=== PATIENT | male | born 1960 | race Caucasian/White ===

== ENCOUNTER 2020-12-18 01:06 | Emergency (ER) | payer BC ==
[~2020-12-18] VITALS: Ht 180.3 cm; Wt 87.3 kg
[2020-12-18 02:00] LABS: BASOPHILS % (AUTO) 0.6 % (0-1); EOSINOPHILS # (AUTO) 0.3 X10'3 (0-0.9); EOSINOPHILS % (AUTO) 4.3 % (0-6); HEMATOCRIT 38.3 % (42.0-52.0); HEMOGLOBIN 13.1 g/dl (14.0-17.9); LYMPHOCYTES # (AUTO) 2.7 X10'3 (1.1-4.8); LYMPHOCYTES % (AUTO) 36.4 % (21-51); MEAN CORPUSCULAR HEMOGLOBIN 30.5 PG (27.0-31.0); MEAN CORPUSCULAR HGB CONC 34.1 g/dL (33.0-36.5); MEAN CORPUSCULAR VOLUME 89.5 FL (78-98); MEAN PLATELET VOLUME 7.3 FL (7.4-10.4); MONOCYTES # (AUTO) 0.8 X10'3 (0-0.9); MONOCYTES % (AUTO) 10.1 % (2-12); NEUTROPHILS # (AUTO) 3.6 X10'3 (1.8-7.7); NEUTROPHILS % (AUTO) 48.6 % (42-75); PLATELET COUNT 281 X10'3 (140-440); RED BLOOD COUNT 4.28 X10'6 (4.70-6.10); RED CELL DISTRIBUTION WIDTH 12.6 % (11.5-14.5); WHITE BLOOD COUNT 7.4 X10'3 (4.5-11.0)
[2020-12-18] MEDS ORDERED: ketorolac tromethamine 15mg/ml inj. IV ONE (02:05)
[2020-12-18] MEDS ORDERED: iohexol 300mg/ml 100ml inj. ONE (02:06)
[2020-12-18 02:10] LABS: ALANINE AMINOTRANSFERASE 16 U/L (12-78); ALBUMIN 3.2 G/DL (3.4-5.0); ALBUMIN/GLOBULIN RATIO 0.9 (1.1-1.5); ALKALINE PHOSPHATASE 70 IU/L (46-116); ANION GAP 9 (8-16); ASPARTATE AMINO TRANSFERASE 13 U/L (10-37); BILIRUBIN,TOTAL 0.2 MG/DL (0.1-1.0); BLOOD UREA NITROGEN 22 MG/DL (7-18); BUN/CREATININE RATIO 18.8 (5.4-32.0); CALCIUM 8.1 MG/DL (8.5-10.1); CHLORIDE 106 MMOL/L (99-107); CREATININE 1.17 MG/DL (0.60-1.10); GLUCOSE 116 MG/DL (70-104); LIPASE 67 U/L (73-393); POTASSIUM 3.9 MMOL/L (3.5-5.1); SODIUM 139 MMOL/L (135-145); TOTAL CARBON DIOXIDE 24.1 MMOL/L (24-32); TOTAL PROTEIN 6.7 G/DL (6.4-8.2); eGFR 63 ML/MIN
[2020-12-18 04:10] LABS: CLARITY,URINE BLOODY (Clear); COLOR,URINE RED (Yellow); UA COLLECTION TYPE CLN CATCH MIDSTREAM
[2020-12-18 04:17] LABS: BACTERIA,URINE NONE SEEN /HPF (Neg); RBC,URINE TNTC /HPF (0-2)
[2020-12-18 04:18] LABS: MUCUS STRANDS FEW /LPF (Neg); SQUAMOUS EPITHELIAL CELL,UR FEW /LPF (FEW); WBC,URINE 0-4 /HPF (0-4)
[2020-12-18 05:17] VITALS: BP 161/92
== END 2020-12-18 05:40 | disposition home or self-care (01) ==
LOC: ER 01:07
DX: N28.89 Other specified disorders of kidney and ureter (principal); I10 Essential (primary) hypertension; Z72.89 Other problems related to lifestyle
CPT/HCPCS: 36415; 74177; 80053; 81001; 83690; 85025; 96374; 99285; J1885; Q9967

== ENCOUNTER 2022-08-12 11:02 | Emergency (ER) | payer BC ==
[~2022-08-12] VITALS: Ht 180.3 cm; Wt 90.5 kg
[2022-08-12 11:06] VITALS: BP 136/91
[2022-08-12] MEDS ORDERED: acetaminophen 325mg tablet PO ONE (12:05)
== END 2022-08-12 12:36 | disposition home or self-care (01) ==
LOC: ER 11:02
DX: S93.492A Sprain of other ligament of left ankle, initial encounter (principal); M25.562 Pain in left knee; Z88.0 Allergy status to penicillin; Z79.899 Other long term (current) drug therapy
CPT/HCPCS: 29515; 73610; 99284; L1930

== ENCOUNTER 2024-10-31 10:27 | Emergency (ER) | payer MEDICARE, BC ==
[~2024-10-31] VITALS: Ht 180.3 cm; Wt 92.3 kg
[2024-10-31 10:29] VITALS: BP 135/84; PULSE 55; RESP 16; O2SAT 99
--- NOTE | 2024-10-31 11:07 | Physician Documentation ---
HPI ~ General Chief Complaint: Medication Request Stated Complaint: POSSIBLE RABIE VACCINE Time Seen by MD: 10:37 OK to notify your PCP?: Yes Primary Medical Doctor: Rc Hyatt MD Source: patient Mode of Arrival: POV Exam Limitations: no limitations History of Present Illness HPI Comments 64-year-old male who is here to get rabies immunization and immunoglobulin. He states he woke up this morning and felt something in his bed in his saw that it was a bat. He reports that there was some blood on the bat as well as in his bed but he is not recall being bit. Patient states that he [facility] the [facility] in the are going to be testing the back but they recommended that she come to the ER for rabies iz and immunoglobulin. Patient's flew out this morning to [place] and states that she has also been treated. Patient does not know if he was bit by the about but he states the public [facility] told him that they have such small teeth that it is very possible that he was bit but just does not know. Medication Reconciliation Allergies: Coded Allergies: Penicillins (Verified Allergy, Unknown, 12/18/20) Past Medical History Past Medical History: No Pertinent History Review of Systems All Other Systems at this time: Reviewed and Negative Physical Exam Physical Exam Vital Signs: Temperature: 98.7, Source: Oral, Heart Rate: 55, Respiratory Rate: 16, BP: 135/84, Pulse Oximetry: 99, Weight: 92.300 Oxygen Flow Rate: 0 Physical Exam GENERAL: Alert, no acute distress. HEENT: NCAT, EOMI, PERRL, moist oral mucosa. NECK: Supple, trachea midline. CARDIAC: Regular rate and rhythm, no murmurs, rubs, or gallops. PV: Equal distal pulses. No lower extremity edema, cap refill less than 2 seconds. RESPIRATORY: Equal breath sounds, clear to auscultation bilaterally, no respiratory distress. MUSCULOSKELETAL: Normal gait. NEUROLOGICAL: Awake, alert, and oriented x 3. SKIN: Warm/dry, no pallor, no rash. PSYCH: Alert and appropriate. Affect congruent with mood. Speech is clear. Good eye contact. Progress Results/Orders Results/Orders Orders - ROBERT MOREIRA Rabies Immune Globulin/Pf Inj (Hyperrab (10/31/24 11:00) Completed Orders - ROBERT MOREIRA Rabies Vaccine (Pcec)/Pf (Rabavert Rabie (10/31/24 11:00) Vital Signs 10/31/24 10:29 Temp 98.7 Pulse 55 Resp 16 B/P (MAP) 135/84 Pulse Ox 99 O2 Flow Rate 0 Medical Decision Making Differential Dx:Considerations: Include: Adverse circumstances, Economic, Psychosocial, Medical services unavail., Medication refill, Medication non- compliance, Other Departure Time of Disposition: 11:04 Disposition: 01 HOME / SELF CARE / HOMELESS Impression: Primary Impression: Exposure to bat without known bite Condition: Stable Discharge Instructions: Rabies Immune Globulin, human RIG solution for injection, Rabies Vaccine suspension for injection Additional Instructions: RABIES IZ NEEDS TO BE GIVEN IN 3DAYS, 7DAYS AND 14DAYS FROM TODAY THUS 11/03/24 AND 11/07/24 AND 11/14/24. I AM NOT SURE IF YOU ARE ABLE TO GO TO PHARMACY OR URGENT CARE TO GET THE SUBSEQUENT RABIES IMMUNIZATIONS BUT I DO BELIEVE THAT ONE OF THOSE PLACES IS POSSIBLE OPTION OTHERWISE RETURN TO ER. Referrals: NO PRIMARY CARE PROVIDER (PCP) Education Educated: Patient Educated regarding: diagnosis, treatment, need for follow up Signature Scribe Signature: X Attestation: ROBERT LEON October 31, 2024 11:07
[2024-10-31] MEDS: rabies immune globulin/PF 150 unit/ml inj IMVAC ONE (12:09)
[2024-10-31] MEDS: rabies vaccine (PCEC)/PF 2.5 unit kit IMVAC ONE (12:10)
[2024-10-31 12:18] VITALS: TEMP 98.7
== END 2024-10-31 12:21 | disposition home or self-care (01) ==
LOC: ER 10:27
DX: Z20.3 Contact with and (suspected) exposure to rabies (principal); Z88.0 Allergy status to penicillin
CPT/HCPCS: 90375; 90675; 96372; 99284; G0008; 90376; 90471; 96375

== ENCOUNTER 2024-11-03 09:49 | Emergency (ER) | payer MEDICARE, BC ==
[~2024-11-03] VITALS: Ht 180.3 cm; Wt 90.9 kg
[2024-11-03 09:56] VITALS: BP 123/74; PULSE 61; RESP 17; TEMP 97.9; O2SAT 98
--- NOTE | 2024-11-03 12:34 | Physician Documentation ---
HPI ~ General Chief Complaint: Medication Request Stated Complaint: 2ND RABIES SERIES Time Seen by MD: 10:46 Primary Medical Doctor: Rc Hyatt MD History of Present Illness HPI Comments Patient is seen today with complaints of needing his 2nd dose of the rabies vaccine. Patient states he woke up with a bat in his bed last week. Patient states he got his 1st dose of the rabies vaccine last Sunday. Patient denies any symptoms and denies any chest pain or shortness of breath or abdominal pain or fevers or chills or nausea, vomiting, diarrhea. Patient has no other concern or complaint at this time. Medication Reconciliation Allergies: Coded Allergies: Penicillins (Verified Allergy, Unknown, 12/18/20) Past Medical History Past Medical History: No Pertinent History Review of Systems Constitutional: Denies: chills, fever, weakness Eyes: Denies: pain, blurred vision ENT: Denies: ear pain, nose pain, throat pain, mouth pain Respiratory: Denies: cough, shortness of breath Cardiovascular: Denies: chest pain, palpitations Gastrointestinal: Denies: abdominal pain, nausea, vomiting Genitourinary: Denies: burning, dysuria Male Genitalia: Denies: penile discharge, testicular pain Neurological: Denies: headache, dizziness Musculoskeletal: Denies: pain, swelling Integumentary: Denies: rash, lesions Allergic/Immunologic: Denies: hives, itching Hematologic/Lymphatic: Denies: no symptoms reported Psychiatric: Denies: depression, anxiety Physical Exam Physical Exam Vital Signs: Temperature: 97.9, Heart Rate: 61, Respiratory Rate: 17, BP: 123/74, Pulse Oximetry: 98, Weight: 90.910 Oxygen Flow Rate: 0 Physical Exam General: Awake and Alert, no acute distress. HEENT: Conjunctiva pink, Sclera clear, Mucus Membranes moist. Neck: Supple without masses and tenderness. Resp: Unlabored. Lungs clear to auscultation bilaterally. Heart: Regular Rate and rhythm, normal S1 and S2 without murmur, rub or gallop. Abdomen: Soft and non tender no organomegaly Extremities: No cyanosis,clubbing or edema. Skin: Warm and Dry. Progress Results/Orders Results/Orders Vital Signs 11/03/24 09:56 Temp 97.9 Pulse 61 Resp 17 B/P (MAP) 123/74 Pulse Ox 98 O2 Flow Rate 0 Medical Decision Making Findings Patient is seen today with complaints of needing his 2nd dose of the rabies vaccine. Patient states he woke up with a bat in his bed last week. Patient states he got his 1st dose of the rabies vaccine last Sunday. Patient denies any symptoms and denies any chest pain or shortness of breath or abdominal pain or fevers or chills or nausea, vomiting, diarrhea. Patient has no other concern or complaint at this time. 2nd Rabies Vaccine dose was given today. Patient will follow up on Sunday in four days were his next vaccine dose as well as one week following that. Patient will return to ED with any worsening, concerning or changing symptoms. Departure Disposition: HOME / SELF CARE / HOMELESS Impression: Primary Impression: Exposure to bat without known bite Condition: Stable Discharge Instructions: Medicine Refill at the Emergency Department Additional Instructions: 2nd Rabies Vaccine dose was given today. Patient will follow up on Sunday in four days were his next vaccine dose as well as one week following that. Patient will return to ED with any worsening, concerning or changing symptoms. Referrals: NO PRIMARY CARE PROVIDER (PCP) Signature Scribe Signature: No scribe Attestation: No scribe SHAN GASTELUM PAC November 03, 2024 12:34
[2024-11-03] MEDS: rabies vaccine (PCEC)/PF 2.5 unit kit IMVAC ONE (12:51)
== END 2024-11-03 12:57 | disposition home or self-care (01) ==
LOC: ER 09:50
DX: Z20.3 Contact with and (suspected) exposure to rabies (principal); Z23 Encounter for immunization; Z88.0 Allergy status to penicillin
CPT/HCPCS: 90675; 99281; G0008; 90471

== ENCOUNTER 2024-11-07 06:52 | Emergency (ER) | payer MEDICARE, BC ==
[~2024-11-07] VITALS: Ht 180.3 cm; Wt 92.5 kg
[2024-11-07 07:12] VITALS: BP 111/81; PULSE 54; RESP 18; TEMP 97.1; O2SAT 98
--- NOTE | 2024-11-07 07:55 | Physician Documentation ---
HPI ~ General Chief Complaint: Medication Request Stated Complaint: MED REQ Time Seen by MD: 07:27 Primary Medical Doctor: Rc Hyatt MD History of Present Illness HPI Comments Patient presents today for day 3 rabies vaccination following exposure to bat who was in his bed. He is asymptomatic feels fine Medication Reconciliation Allergies: Coded Allergies: Penicillins (Verified Allergy, Unknown, 12/18/20) Past Medical History Past Medical History: No Pertinent History Review of Systems All Other Systems at this time: Reviewed and Negative Physical Exam Physical Exam Vital Signs: Temperature: 97.1, Source: Temporal, Heart Rate: 54, Respiratory Rate: 18, BP: 111/81, Pulse Oximetry: 98, Weight: 92.550 Oxygen Flow Rate: 0 Physical Exam Well-appearing No distress Awake alert oriented Nonlabored breathing Skin well-perfused Progress Results/Orders Results/Orders Orders - CHETAN BATISTA MD Rabies Vaccine (Pcec)/Pf (Rabavert Rabie (11/07/24 07:55) Vital Signs 11/07/24 07:12 Temp 97.1 Pulse 54 Resp 18 B/P (MAP) 111/81 Pulse Ox 98 O2 Flow Rate 0 Medical Decision Making Differential Dx:Considerations: Include: Adverse circumstances, Economic, Psychosocial, Medication refill Departure Disposition: 01 HOME / SELF CARE / HOMELESS Impression: Primary Impression: Rabies, need for prophylactic vaccination against Referrals: NO PRIMARY CARE PROVIDER (PCP) Signature Scribe Signature: na Attestation: CHETAN Garcia MD November 07, 2024 07:55
[2024-11-07] MEDS: rabies vaccine (PCEC)/PF 2.5 unit kit IMVAC ONE (08:38)
== END 2024-11-07 08:43 | disposition home or self-care (01) ==
LOC: ER 06:53
DX: Z20.3 Contact with and (suspected) exposure to rabies (principal); Z23 Encounter for immunization; Z88.0 Allergy status to penicillin
CPT/HCPCS: 90675; 99281; G0008; 90471

== ENCOUNTER 2024-11-14 05:50 | Emergency (ER) | payer MEDICARE, BC ==
[~2024-11-14] VITALS: Ht 167.6 cm; Wt 78.2 kg
[2024-11-14 05:56] VITALS: BP 121/78; PULSE 54; RESP 15; TEMP 98.6; O2SAT 98
--- NOTE | 2024-11-14 06:21 | Physician Documentation ---
HPI ~ General Chief Complaint: Medication Request Stated Complaint: RABIES VACCINE Time Seen by MD: 06:17 OK to notify your PCP?: Yes Primary Medical Doctor: Rc Hyatt MD Source: patient, RN/MD, RN notes reviewed, old records Mode of Arrival: POV Exam Limitations: no limitations History of Present Illness HPI Comments Patient is here for 4th rabies vaccine. Patient was exposed to a bat which r ecently came back negative nevertheless was told to finish the series. Patient has no complaints otherwise in good health no fevers chills. The bat was found in the house with some blood on it but nobody had any direct bites. Patient is otherwise in good health. Medication Reconciliation Allergies: Coded Allergies: Penicillins (Verified Allergy, Unknown, 11/14/24) >5 years, rash, no treatment required, PEN-FAST 2 Past Medical History Past Medical History: No Pertinent History Review of Systems All Other Systems at this time: Reviewed and Negative Physical Exam Physical Exam Vital Signs: RN Vital Signs have been reviewed: Yes, Temperature: 98.6, Source: Temporal, Heart Rate: 54, Respiratory Rate: 15, BP: 121/78, Pulse Oximetry: 98, Weight: 78.150 Physical Exam General: The patient is well developed, well nourished, nontoxic appearing and is in no acute distress. Skin: [place], warm and dry with no rashes. HEENT: Head was normocephalic and atraumatic. Eyes - pupils equal, round, reactive to light and accommodation. Extraocular movements were intact. n The mouth and oropharynx were clear with moist mucous membranes. There were no pharyngeal exudates or erythema. Neck: Supple and nontender. Chest: Clear to auscultation bilaterally without wheezes, rales or rhonchi. Heart: Rate regular and rhythmic. S1, S2. No murmurs. Abdomen: Soft, nontender and nondistended. Positive bowel sounds. Extremities: No cyanosis, clubbing or edema. The patient moves all extremities. Neurologic: Motor sensory grossly intact Psychologic: The patient was oriented to person, place and time. The patient demonstrated appropriate judgement and insight. Progress Results/Orders Reviewed/noted all lab results: Yes Results/Orders Completed Orders - LOR ROMO MD Rabies Vaccine (Pcec)/Pf (Rabavert Rabie (11/14/24 06:25) Vital Signs 11/14/24 05:56 Temp 98.6 Pulse 54 Resp 15 B/P (MAP) 121/78 Pulse Ox 98 Re-Evaluation Re-Evaluation : Re-Evaluation: Improved Progress Patient was seen and examined. Patient is given reassurance. Patient received the for some final vaccine. Patient recently was told that the bat was negative. Patient was see the final dose since they are here otherwise no additional vaccines are required. Medical Decision Making Additional info obtained from: old records Differential Dx:Considerations: Include: Medical services unavail., Medication refill, Other Departure Disposition: HOME / SELF CARE / HOMELESS Impression: Primary Impression: Rabies, need for prophylactic vaccination against Additional Impression: Exposure to bat without known bite Condition: Stable Discharge Instructions: Medical Screening Exam Referrals: NO PRIMARY CARE PROVIDER (PCP) Education Educated: Patient Educated regarding: diagnosis, need for follow up Signature Scribe Signature: No scribed Attestation: The note accurately reflects work and decisions made by me.Lor Romo MD 11/14/24 06:21 LOR ROMO MD Nov 14, 2024 06:21
[2024-11-14] MEDS: rabies vaccine (PCEC)/PF 2.5 unit kit IMVAC ONE (06:53)
== END 2024-11-14 07:07 | disposition home or self-care (01) ==
LOC: ER 05:50
DX: Z20.3 Contact with and (suspected) exposure to rabies (principal); Z23 Encounter for immunization; Z88.0 Allergy status to penicillin
CPT/HCPCS: 90675; 99281; G0008; 90471